=== PATIENT | female | born 1995 | race Hispanic/Latino ===

== ENCOUNTER 2018-05-06 02:40 | Observation (INO) | payer MEDICAID ==
[2018-05-06] VITALS (18 sets, daily range): BP systolic 96–131; BP diastolic 50–79
[2018-05-06 03:39] LABS: BASOPHILS % (AUTO) 0.3 % (0.0-5.0); EOSINOPHILS % (AUTO) 0.7 % (0.0-8.0); HEMATOCRIT 34.9 % (36-48); LYMPHOCYTES % (AUTO) 23.1 % (21.0-51.0); MEAN CORPUSCULAR HEMOGLOBIN 29.3 pg (27.0-33.0); MEAN CORPUSCULAR VOLUME 86.1 fL (79-99); MONOCYTES % (AUTO) 7.3 % (3.0-13.0); NEUTROPHILS % (AUTO) 68.6 % (40.0-77.0); PLATELET COUNT (AUTO) 191 K/uL (130-400); RED BLOOD CELL COUNT(AUTO) 4.06 MIL/uL (4.00-5.50); RED CELL DISTRIBUTION WIDTH 15.4 % (11.0-15.5); WHITE BLOOD COUNT (AUTO) 9.8 K/uL (4.8-10.8)
[2018-05-06 03:51] LABS: CREATININE 0.6 mg/dL (0.5-1.5); POTASSIUM 3.6 mmol/L (3.5-5.1)
[2018-05-06 04:22] LABS: ALBUMIN 3.3 g/dL (3.5-5.0); BILIRUBIN,TOTAL 0.3 mg/dL (0.2-1.0); TOTAL PROTEIN, SERUM 6.9 g/dL (6.0-8.3)
[2018-05-06 04:55] LABS: APPEARANCE,URINE Clear (CLEAR); BILIRUBIN,URINE Negative (NEGATIVE); COLOR,URINE Yellow (YELLOW); GLUCOSE, URINE (UA) Negative (NEGATIVE); KETONES,URINE Negative (NEGATIVE); LEUKOCYTE ESTERASE ,URINE Negative (NEGATIVE); NITRATE,URINE Negative (NEGATIVE); OCCULT BLOOD,URINE Moderate (NEGATIVE); PH,URINE 5.5 (5.0-8.0); PROTEIN,URINE Negative (NEGATIVE); UROBILINOGEN,URINE 0.2 mg/dL (0.2-1.0)
[2018-05-06 04:59] LABS: BACTERIA,URINE None Seen /HPF (None Seen); RBC,URINE 51-100 /HPF (0-1); WBC,URINE None Seen /HPF (0-1)
[2018-05-06 05:00] LABS: SQUAMOUS EPITHELIAL CELL,UR Rare /HPF (0-2)
[2018-05-06] MEDS ORDERED: ONDANSETRON HCL 4 MG/2 ML VIAL ONE (06:03)
[2018-05-06] MEDS ORDERED: MORPHINE SULFATE 4 MG/1ML SYG ONE (06:04)
[2018-05-06] MEDS ORDERED: DEXTROSE 5 %-0.45 % NACL 1,000 ML IV SCH (06:15)
[2018-05-06] MEDS ORDERED: SUCCINYLCHOLINE 200MG/10ML SYR ONE (06:37)
[2018-05-06] MEDS ORDERED: ROCURONIUM 10MG/1ML SYR 10 MG/ML ML ONE (06:37)
[2018-05-06] MEDS ORDERED: LIDOCAINE PF 2% 5ML ABBOJECT ONE (06:37)
[2018-05-06] MEDS ORDERED: PROPOFOL 10 MG/ML 20ML VIAL IV ONE (06:38)
[2018-05-06] MEDS ORDERED: FENTANYL CITRATE PF 50 MCG/1 ML 2ML VIAL ONE (06:38)
[2018-05-06] MEDS ORDERED: MIDAZOLAM HCL 1 MG/ML 2ML VIAL ONE (06:38)
[2018-05-06] MEDS ORDERED: OXYTOCIN 10 USP UNITS/ML ONE (08:59)
[2018-05-06] MEDS ORDERED: OXYTOCIN 10 USP UNITS/ML IV SCH (09:00)
[2018-05-06] MEDS ORDERED: IBUPROFEN 600 MG TABLET PO PRN (09:00)
[2018-05-06] MEDS ORDERED: LACTATED RINGERS 1000ML 1,000 ML IV SCH (09:00)
[2018-05-06] MEDS ORDERED: PREN-66 PO (09:11)
== END 2018-05-06 15:20 | disposition home or self-care (01) ==
LOC: EDH 02:40 → EDHIP 02:41 → WSH 06:45
PROVIDERS: ADMIT Obstetrics & Gynecology; ATTEND Obstetrics & Gynecology
DX: O03.4 Incomplete spontaneous abortion without complication (principal); Z23 Encounter for immunization
CPT/HCPCS: 36415; 59841; 76801; 80053; 81001; 84702; 85025; 86900; 86901; 88305; 90471; 96374; 99285; A4606; G0378 ×13; J0330; J2001; J2250; J2270; J2405; J2590; J2704; J3010; J7120; Q2038; 90686

== ENCOUNTER 2018-08-04 10:36 | Emergency (ER) | payer MEDICAID ==
[~2018-08-04 10:36] MED LIST: PREN-66 PO
[2018-08-04] MEDS ORDERED: SODIUM CHLORIDE 0.9% 1000ML 1,000 ML IV ONE (11:38)
[2018-08-04 11:46] LABS: BASOPHILS % (AUTO) 0.3 % (0.0-5.0); EOSINOPHILS % (AUTO) 1.2 % (0.0-8.0); HEMATOCRIT 35.6 % (36-48); LYMPHOCYTES % (AUTO) 34.1 % (21.0-51.0); MEAN CORPUSCULAR HEMOGLOBIN 28.9 pg (27.0-33.0); MEAN CORPUSCULAR HGB CONC 33.9 g/dL (32.0-36.0); MEAN CORPUSCULAR VOLUME 85.4 fL (79-99); MONOCYTES % (AUTO) 7.9 % (3.0-13.0); NEUTROPHILS % (AUTO) 56.5 % (40.0-77.0); PLATELET COUNT (AUTO) 226 K/uL (130-400); RED BLOOD CELL COUNT(AUTO) 4.17 MIL/uL (4.00-5.50); WHITE BLOOD COUNT (AUTO) 6.3 K/uL (4.8-10.8)
[2018-08-04 11:46] LABS: APPEARANCE,URINE Cloudy (CLEAR); BILIRUBIN,URINE Negative (NEGATIVE); COLOR,URINE Orange (YELLOW); GLUCOSE, URINE (UA) Negative (NEGATIVE); KETONES,URINE Negative (NEGATIVE); LEUKOCYTE ESTERASE ,URINE Small (NEGATIVE); NITRATE,URINE Negative (NEGATIVE); OCCULT BLOOD,URINE Large (NEGATIVE); PROTEIN,URINE POS 1+ (NEGATIVE); UROBILINOGEN,URINE 0.2 mg/dL (0.2-1.0)
[2018-08-04 11:54] LABS: HCG,QUAL RESULT NEGATIVE (NEGATIVE)
[2018-08-04 11:57] LABS: BACTERIA,URINE Few /HPF (None Seen); RBC,URINE TNTC /HPF (0-1); SQUAMOUS EPITHELIAL CELL,UR Rare /HPF (0-2)
[2018-08-04 11:59] LABS: CREATININE 0.7 mg/dL (0.5-1.5); POTASSIUM 3.9 mmol/L (3.5-5.1)
== END 2018-08-04 13:22 | disposition home or self-care (01) ==
LOC: EDH 10:36
DX: N30.00 Acute cystitis without hematuria (principal); N93.9 Abnormal uterine and vaginal bleeding, unspecified
CPT/HCPCS: 36415; 76830; 80048; 81001; 81025; 85025; 87077; 87088; 87186; 99284; J7030

== ENCOUNTER 2018-10-03 09:24 | Emergency (ER) | payer MEDICAID ==
[2018-10-03] MEDS ORDERED: IBUPROFEN 400 MG TABLET ONE (10:06)
== END 2018-10-03 11:04 | disposition home or self-care (01) ==
LOC: EDH 09:24
DX: M94.0 Chondrocostal junction syndrome [Tietze] (principal); Z98.890 Other specified postprocedural states
CPT/HCPCS: 71045; 81025; 93005

== ENCOUNTER 2019-07-27 21:21 | Emergency (ER) | payer MEDICAID, OTHER ==
[2019-07-27] MEDS ORDERED: SODIUM CHLORIDE 0.9% 1000ML 2,000 ML IV ONE (22:19)
[2019-07-27 22:24] LABS: APPEARANCE,URINE Clear (CLEAR); BILIRUBIN,URINE Negative (NEGATIVE); COLOR,URINE Yellow (YELLOW); GLUCOSE, URINE (UA) Negative (NEGATIVE); KETONES,URINE Negative (NEGATIVE); LEUKOCYTE ESTERASE ,URINE Small (NEGATIVE); NITRATE,URINE Negative (NEGATIVE); OCCULT BLOOD,URINE Negative (NEGATIVE); PROTEIN,URINE Negative (NEGATIVE)
[2019-07-27 22:28] LABS: HCG,QUAL RESULT NEGATIVE (NEGATIVE)
[2019-07-27 22:41] LABS: BASOPHILS % (AUTO) 0.1 % (0.0-5.0); EOSINOPHILS % (AUTO) 1.7 % (0.0-8.0); HEMATOCRIT 40.9 % (36-48); LYMPHOCYTES % (AUTO) 45.1 % (21.0-51.0); MEAN CORPUSCULAR HEMOGLOBIN 30.4 pg (27.0-33.0); MONOCYTES % (AUTO) 6.9 % (3.0-13.0); NEUTROPHILS % (AUTO) 45.9 % (40.0-77.0); PLATELET COUNT (AUTO) 257 K/uL (130-400); RED CELL DISTRIBUTION WIDTH 11.9 % (11.0-15.5); WHITE BLOOD COUNT (AUTO) 7.6 K/uL (4.8-10.8)
[2019-07-27 22:50] LABS: BACTERIA,URINE Few /HPF (None Seen); MUCUS,URINE Moderate LPF (None Seen); RBC,URINE 0-1 /HPF (0-1); SQUAMOUS EPITHELIAL CELL,UR 0-2 /HPF (0-2)
[2019-07-27 22:55] LABS: CREATININE 0.8 mg/dL (0.5-1.5); POTASSIUM 3.3 mmol/L (3.5-5.1)
[2019-07-27 22:58] LABS: INR 0.99 (0.85-1.15); PARTIAL THROMBOPLASTIN TIME 27.5 SEC (26.3-35.5); PROTHROMBIN TIME 10.4 SEC (9.6-11.6)
[2019-07-27 22:59] LABS: ALBUMIN 4.5 g/dL (3.5-5.0); BILIRUBIN,TOTAL 0.4 mg/dL (0.2-1.0); TOTAL PROTEIN, SERUM 7.6 g/dL (6.0-8.3)
[2019-07-27] MEDS ORDERED: IOHEXOL-350 75 ML VIAL IV ONE (23:02)
[2019-07-28] MEDS ORDERED: LACTULOSE 20 GM/30 ML UDCUP ONE (00:21)
== END 2019-07-28 00:36 | disposition home or self-care (01) ==
LOC: EDH 21:21
DX: R10.31 Right lower quadrant pain (principal); R68.83 Chills (without fever)
CPT/HCPCS: 36415; 74177; 80053; 81001; 81025; 83690; 85025; 85610; 85730; 99285; J7030; Q9967

== ENCOUNTER 2022-01-17 23:27 | Observation (INO) | payer BC, OTHER ==
[~2022-01-17] VITALS: Ht 149.9 cm; Wt 58.1 kg
[2022-01-17] MEDS ORDERED: MORPHINE 4 MG SYG ONE (23:51)
[2022-01-17] MEDS ORDERED: ONDANSETRON 4MG INJ ONE (23:51)
[2022-01-17 23:53] LABS: BASOPHILS % (AUTO) 0.1 % (0.0-5.0); EOSINOPHILS % (AUTO) 0.2 % (0.0-8.0); LYMPHOCYTES % (AUTO) 21.4 % (21.0-51.0); MEAN CORPUSCULAR HEMOGLOBIN 30.1 pg (27.0-33.0); MEAN CORPUSCULAR HGB CONC 33.7 g/dL (32.0-36.0); MEAN CORPUSCULAR VOLUME 89.4 fL (79-99); NEUTROPHILS % (AUTO) 72.7 % (40.0-77.0); PLATELET COUNT (AUTO) 351 K/uL (130-400); RED BLOOD CELL COUNT(AUTO) 3.02 MIL/uL (4.00-5.50); RED CELL DISTRIBUTION WIDTH 13.2 % (11.0-15.5); WHITE BLOOD COUNT (AUTO) 12.3 K/uL (4.8-10.8)
[2022-01-17] MEDS ORDERED: ACETAMINOPHEN 500 MG TABLET ONE (23:58)
[2022-01-18] VITALS (30 sets, daily range): BP systolic 82–134; BP diastolic 48–87
[2022-01-18 00:02] LABS: CREATININE 0.7 mg/dL (0.5-1.5); POTASSIUM 3.4 mmol/L (3.5-5.1)
[2022-01-18 00:07] LABS: ALBUMIN 4.2 g/dL (3.5-5.0); BILIRUBIN,TOTAL 0.2 mg/dL (0.2-1.0); TOTAL PROTEIN, SERUM 7.9 g/dL (6.0-8.3)
[2022-01-18] MEDS ORDERED: 0.9%NACL 1000ML 1,000 ML IV ONE (00:30)
[2022-01-18] MEDS ORDERED: ACETAMINOPHEN 500 MG TABLET PO ONE (00:30)
[2022-01-18] MEDS ORDERED: ZOSYN 3.375GM +NS 50ML IV SCH ×2 (00:30→08:00)
[2022-01-18] MEDS ORDERED: MORPHINE 4 MG SYG IVP ONE (00:30)
[2022-01-18] MEDS ORDERED: ONDANSETRON 4MG INJ IVP ONE (00:30)
[2022-01-18 01:24] LABS: APPEARANCE,URINE Clear (CLEAR); BILIRUBIN,URINE Negative (NEGATIVE); COLOR,URINE Yellow (YELLOW); GLUCOSE, URINE (UA) Negative (NEGATIVE); KETONES,URINE Negative (NEGATIVE); LEUKOCYTE ESTERASE ,URINE Large (NEGATIVE); NITRATE,URINE Negative (NEGATIVE); OCCULT BLOOD,URINE Large (NEGATIVE); PH,URINE 6.5 (5.0-8.0); PROTEIN,URINE Trace mg/dL (NEGATIVE); UROBILINOGEN,URINE 0.2 mg/dL (0.2-1.0)
[2022-01-18 01:35] LABS: BACTERIA,URINE Few /HPF (None Seen); SQUAMOUS EPITHELIAL CELL,UR Rare /HPF (0-2)
[2022-01-18] MEDS ORDERED: POTASSIUM CHLORIDE 10% ELIXIR 20 MEQ/15 ML UDCUP PO STA (01:43)
[2022-01-18] MEDS ORDERED: ACETAMINOPHEN 325 MG TAB PO PRN ×2 (02:00→05:30)
[2022-01-18] MEDS ORDERED: MORPHINE 2 MG SYG IVP PRN (02:00)
[2022-01-18] MEDS ORDERED: POTASSIUM CHLORIDE 10% ELIXIR 20 MEQ/15 ML UDCUP PO ONE (02:00)
[2022-01-18] MEDS ORDERED: DiphenhydrAMINE HCL 50 MG/ML VIAL IV PRN (02:00)
[2022-01-18] MEDS ORDERED: DEXTROSE 5%-LACTATED RINGERS 1,000 ML IV SCH (02:00)
[2022-01-18] MEDS ORDERED: ONDANSETRON 4MG INJ IVP PRN (02:00)
[2022-01-18] MEDS ORDERED: LIDOCAINE HCL MPF 1% 5ML VIAL ONE (07:00)
[2022-01-18] MEDS ORDERED: DEXAMETHASONE SOD PHOSPHATE 4 MG/ML 1ML VIAL ONE (07:01)
[2022-01-18] MEDS ORDERED: ROCURONIUM 10MG/1ML SYR 10 MG/ML ML ONE (07:01)
[2022-01-18] MEDS ORDERED: PROPOFOL 10 MG/ML 20ML VIAL IV ONE (07:01)
[2022-01-18] MEDS ORDERED: MIDAZOLAM HCL 1 MG/ML 2ML VIAL ONE ×2 (07:01→08:46)
[2022-01-18] MEDS ORDERED: FENTANYL CITRATE PF 50 MCG/1 ML 2ML VIAL ONE (07:01)
[2022-01-18] MEDS ORDERED: ONDANSETRON 4MG INJ ONE (07:01)
[2022-01-18] MEDS ORDERED: ZOSYN 3.375GM+NS 50ML 50 ML ONE (07:12)
[2022-01-18] MEDS ORDERED: PHENYLEPHRINE HCL 10 MG/ML 1ML VIAL IV ONE (07:23)
[2022-01-18] MEDS ORDERED: 0.9%NACL 10ML VIAL ONE (07:28)
[2022-01-18] MEDS ORDERED: OXYTOCIN 10 USP UNITS/ML ONE (07:28)
[2022-01-18] MEDS ORDERED: GLYCOPYRROLATE 1 MG/5 ML SYRINGE ONE (07:36)
[2022-01-18] MEDS ORDERED: NEOSTIGMINE 5MG/5ML SYR IV ONE (07:36)
[2022-01-18] MEDS ORDERED: SUGAMMADEX SODIUM 200 MG/2 ML VIAL IV ONE (07:41)
[2022-01-18] MEDS ORDERED: MEPERIDINE-PF 25 MG/ML SYG ONE (08:39)
[2022-01-18] MEDS ORDERED: IBUPROFEN 600 MG TABLET PO PRN (10:00)
[2022-01-18] MEDS ORDERED: USP IV SCH (10:00)
[2022-01-18] MEDS ORDERED: PROMETHAZINE HCL 25 MG/ML 1ML AMPULE IM PRN (10:00)
[2022-01-18] MEDS ORDERED: MEPERIDINE-PF 50 MG/ML SYG IM PRN (10:00)
[2022-01-18] MEDS ORDERED: OXYTOCIN IV SCH (10:00)
[2022-01-18] MEDS ORDERED: DEXTROSE IV SCH (10:00)
[2022-01-18] MEDS ORDERED: NACL IV SCH (10:00)
== END 2022-01-18 15:45 | disposition home or self-care (01) ==
LOC: EDH 23:27 → INTOOBSV 23:28 → EDHIP 23:28 → EDH 01-18 01:57 → WSH 01-18 02:00
PROVIDERS: ADMIT Obstetrics & Gynecology; ATTEND Obstetrics & Gynecology
DX: O03.4 Incomplete spontaneous abortion without complication (principal); Z20.822 Contact with and (suspected) exposure to COVID-19; Z3A.08 8 weeks gestation of pregnancy
CPT/HCPCS: 36415; 59820; 76817; 80053; 81001; 83605; 84702; 85025; 86850; 86900; 86901; 87040 ×2; 87088; 87635; 96365; 96366; 96367; 96375; 99284; A4215 ×2; A4221; A4222; A4223; A4351; A4649 ×2; A4657; A4663; A7002; C1769 ×2; G0168; G0378 ×6; J1100; J2175; J2250 ×2; J2270; J2370; J2405 ×2; J2543 ×2; J2590 ×2; J2704; J3010; J3490 ×2; J7030; J7042; J2710

== ENCOUNTER 2023-04-15 23:32 | Emergency (ER) | payer BC ==
[~2023-04-15] VITALS: Ht 149.9 cm; Wt 63.0 kg
[2023-04-15 23:59] LABS: ADD UA MICROSCOPIC YES; APPEARANCE,URINE CLOUDY (CLEAR); BILIRUBIN,URINE NEGATIVE (NEGATIVE); COLOR,URINE BROWN (YELLOW); GLUCOSE, URINE (UA) NEGATIVE (NEGATIVE); KETONES,URINE NEGATIVE (NEGATIVE); LEUKOCYTE ESTERASE ,URINE 500 Leu/uL (NEGATIVE); NITRATE,URINE NEGATIVE (NEGATIVE); OCCULT BLOOD,URINE LARGE (NEGATIVE); PROTEIN,URINE 70 mg/dL (NEGATIVE); UROBILINOGEN,URINE 0.2 mg/dL (0.2-1.0)
[2023-04-16 00:03] LABS: BACTERIA,URINE RARE /HPF (None Seen); RBC,URINE TNTC /HPF (0-1); SQUAMOUS EPITHELIAL CELL,UR FEW /HPF (0-2); WBC CLUMP MANY /HPF (0-1); WBC,URINE TNTC /HPF (0-1); YEAST,URINE BUDDING RARE /HPF (None Seen)
[2023-04-16 00:10] VITALS: BP 136/62; PULSE 89; RESP 18; O2SAT 100
[2023-04-16] MEDS ORDERED: SULF1TAB42 PO (00:15)
== END 2023-04-16 00:39 | disposition home or self-care (01) ==
LOC: EDH 23:32
DX: N39.0 Urinary tract infection, site not specified (principal)
CPT/HCPCS: 81001; 87077; 87088; 87186